=== PATIENT | female | born 1960 | race Caucasian/White ===

== ENCOUNTER 2016-10-31 13:30 | Emergency (ER) | payer BC ==
[2016-10-31] MEDS ORDERED: Zofran 4 MG/2 ML VIAL IV ONE (14:12)
[2016-10-31] MEDS ORDERED: ANTIVERT 25 MG PO ONE (14:15)
[2016-10-31] MEDS ORDERED: Sodium Chloride 0.9% 1000 ML 1,000 ML IV SCH (14:15)
[2016-10-31 14:21] LABS: BASOPHIL % 0.3 % (0.0-0.4); Eosinophil % 1.9 % (0.00-5.0); Granulocytes % 57.5 % (36.0-66.0); Lymphocytes % 33.5 % (24.0-44.0); Mean Cell Volume 87.9 fl (78-100); Mean Corpuscular Hemoglobin 29.7 pg (26-32); Mean Platelet Volume 10.5 fl (6-9.5); Monocytes % 6.8 % (0.0-12.0); Platelet Count 267 K/mm3 (150-450); Red Blood Count 4.71 M/mm3 (4.1-5.4); Red Cell Distribution Width 12.9 % (11.5-14.0); White Blood Count 6.8 K/mm3 (4.0-10.5)
--- NOTE | 2016-10-31 14:23 | ERPHSYRPT ---
- History of Present Illness Time Seen by Provider: 10/31/16 14:00 Source: patient Exam Limitations: clinical condition Patient Subjective Stated Complaint: SUDDEN ONSET OF DIZZINESS WHILE AT WORK TODAY. BECAME DIAPHORETIC AND NAUEATED. NOW FEELING VERY WEAK Triage Nursing Assessment: TO ROOM PER W/C, COLOR NORMAL, RESP EASY. SKIN W/D. STATES STILL FEELS WEAK AND NAUSEATED. Physician History: PATIENT WITH HISTORY OR HYPERTENSION, COMPLAINS OF ACUTE ONSET DIZZINESS, FELT ROOM SPINNNG, ASSOCIATED WITH HEADACHE, DENIES BLURRED VISION, CHEST PAIN, COUGH , DYSPNEA, EMESIS OR DIARRHEA. Timing/Duration: today Severity: moderate Character of Deficits: other (NAUSEA, DIZZINESS) Deficits: no difficulties Baseline/Normal Cognition: alert oriented x 3 Current Cognition: alert oriented x 3 Baseline Gait: walks w/o assistance Associated Symptoms: vomiting Allergies/Adverse Reactions: hydrocodone bitartrate [From Vicodin] Adverse Reaction (Intermediate, Verified 10/31/16 13:58) MIGRAINE LIKE HEADACHES codeine Adverse Reaction (Verified 10/31/16 13:58) Home Medications: Omeprazole 20 MG [Prilosec 20 mg] 20 mg PO DAILY 12/07/11 [History] Famotidine [Pepcid] 40 mg PO DAILY PRN PRN 02/27/14 [History] Loratadine 10 mg [Claritin 10 mg] 10 mg PO DAILY 02/27/14 [History] Diclofenac Sodium 50 mg [Voltaren 50 mg] 50 mg PO DAILY PRN 04/28/14 [ History] Losartan Potassium 50 mg [Cozaar 50 MG] 50 mg PO DAILY 10/31/16 [History] Hx Tetanus, Diphtheria Vaccination/Date Given: Yes Hx Influenza Vaccination/Date Given: No Hx Pneumococcal Vaccination/Date Given: No - Review of Systems Constitutional: No Fever, No Chills Eyes: No Symptoms Ears, Nose, & Throat: No Symptoms Respiratory: No Cough, No Dyspnea Cardiac: No Symptoms, No Chest Pain, No Edema, No Syncope Abdominal/Gastrointestinal: Nausea, No Abdominal Pain, No Vomiting, No Diarrhea Genitourinary Symptoms: No Dysuria Musculoskeletal: No Symptoms, No Back Pain, No Neck Pain Skin: No Symptoms, No Rash Neurological: Headache, No Dizziness, No Focal Weakness, No Sensory Changes Psychological: No Symptoms Endocrine: No Symptoms All Other Systems: Reviewed and Negative - Past Medical History Pertinent Past Medical History: Yes Neurological History: No Pertinent History ENT History: No Pertinent History Cardiac History: Hypertension Respiratory History: No Pertinent History Endocrine Medical History: No Pertinent History Musculoskeletal History: Arthritis GI Medical History: GERD History: No Pertinent History Psycho-Social History: Depression Female Reproductive Disorders: No Pertinent History Other Medical History: hx hepatis when 10 yrs - Past Surgical History Past Surgical History: Yes Neuro Surgical History: No Pertinent History Cardiac: No Pertinent History Respiratory: No Pertinent History Gastrointestinal: Cholecystectomy Genitourinary: No Pertinent History Musculoskeletal: Orthopedic Surgery Female Surgical History: Section, Hysterectomy Other Surgical History: T&A, guillermo knee - Social History Smoking Status: Never smoker Exposure to second hand smoke: Yes Drug Use: none Patient Lives Alone: No - Nursing Vital Signs Nursing Vital Signs: Initial Vital Signs Temperature 97.5 F Temperature Source Oral Pulse Rate 69 Respiratory Rate 22 Blood Pressure [] 147/72 Pain Intensity 2 - Physical Exam SpO2: 99 - Course EKG Interpreted by Me: RATE, Sinus Dex, NORMAL AXIS, Non-specific ST Changes - CT Exams Head CT Interpretation: Discussed w/radiologist (NORMAL CT HEAD ) Ordered Tests: Active Orders 24 hr Category Date Time Status EKG-ER Only STAT Care 10/31/16 14:12 Active IV Insertion STAT Care 10/31/16 14:12 Active HEAD WITHOUT CONTRAST [CT] Stat Exams 10/31/16 14:15 Completed CBC W DIFF Stat Lab 10/31/16 14:00 Completed CMP Stat Lab 10/31/16 14:00 Completed TROPONIN Q3H Lab 10/31/16 14:00 Completed TROPONIN Q3H Lab 10/31/16 17:15 Ordered TROPONIN Q3H Lab 10/31/16 20:15 Ordered TROPONIN Q3H Lab 10/31/16 23:15 Ordered TROPONIN Q3H Lab 11/01/16 02:15 Ordered UA W/ MICROSCOPIC Stat Lab 10/31/16 16:04 Completed Medication Summary Generic Name Dose Route Start Last Admin Trade Name Freq PRN Reason Stop Dose Admin Sodium Chloride 1,000 mls @ 100 mls/hr 10/31/16 14:15 10/31/16 15:00 Sodium Chloride 0.9% 1000 Ml IV 11/30/16 14:14 100 mls/hr .Q10H ARIANNA Administration Discontinued Medications Generic Name Dose Route Start Last Admin Trade Name Freq PRN Reason Stop Dose Admin Fentanyl Citrate 50 mcg 10/31/16 16:33 10/31/16 16:41 Sublimaze 100 Mcg/2 Ml IV 10/31/16 16:34 50 mcg STAT ONE Administration Fentanyl Citrate Confirm 10/31/16 16:37 Sublimaze 100 Mcg/2 Ml Administered 10/31/16 16:38 Dose 100 mcg .ROUTE .STK-MED ONE Ketorolac Tromethamine 30 mg 10/31/16 14:55 10/31/16 15:01 Toradol 30 Mg Injection IV 10/31/16 14:56 30 mg STAT ONE Administration Ketorolac Tromethamine Confirm 10/31/16 14:58 Toradol 30 Mg Injection Administered 10/31/16 14:59 Dose 30 mg .ROUTE .STK-MED ONE Meclizine HCl 25 mg 10/31/16 14:15 10/31/16 15:00 Antivert 25 Mg PO 10/31/16 14:16 25 mg STAT ONE Administration Meclizine HCl Confirm 10/31/16 14:47 Antivert 25 Mg Administered 10/31/16 14:48 Dose 25 mg .ROUTE .STK-MED ONE Ondansetron HCl 4 mg 10/31/16 14:12 10/31/16 15:00 Zofran 4 Mg/2 Ml Vial IV 10/31/16 14:13 4 mg STAT ONE Administration Ondansetron HCl Confirm 10/31/16 14:47 Zofran 4 Mg/2 Ml Vial Administered 10/31/16 14:48 Dose 4 mg .ROUTE .STK-MED ONE Lab/Rad Data: Laboratory Result Diagrams 10/31/16 14:00 10/31/16 14:00 Laboratory Results 10/31/16 10/31/16 10/31/16 Range/Units 16:04 14:00 14:00 WBC (4.0-10.5) K/mm3 RBC (4.1-5.4) M/mm3 Hgb (12.0-16.0) gm/dl Hct (35-47) % MCV (78-100) fl MCH (26-32) pg MCHC (32-36) g/dl RDW (11.5-14.0) % Plt Count (150-450) K/mm3 MPV (6-9.5) fl Gran % (36.0-66.0) % Lymphocytes % (24.0-44.0) % Monocytes % (0.0-12.0) % Eosinophils % (0.00-5.0) % Basophils % (0.0-0.4) % Basophils # (0-0.4) Sodium 141 (136-145) mEq/L Potassium 3.9 (3.5-5.1) mEq/L Chloride 103 (98-107) mEq/L Carbon Dioxide 26.8 (21-32) mEq/L Anion Gap 14.7 (5-15) MEQ/L BUN 10 (9-20) mg/dL Creatinine 0.76 (0.55-1.30) mg/dl Estimated GFR > 60 ML/MIN Glucose 96 (70-110) MG/DL Calcium 9.1 (8.5-10.1) mg/dL Total Bilirubin 0.9 (0.2-1.0) mg/dL AST 23 (15-37) U/L ALT 22 (12-78) U/L Alkaline Phosphatase 100 (46-116) U/L Troponin I < 0.017 (0.000-0.056) ng/ml Serum Total Protein 7.4 (6.4-8.2) gm/dL Albumin 4.2 (3.4-5.0) g/dL Ur Collection Type VOID Urine Color YELLOW (YELLOW) Urine Appearance CLEAR (CLEAR) Urine pH 7.0 (5-6) Ur Specific [place] 1.015 (1.005-1.025) Urine Protein NEGATIVE (Negative) Urine Glucose (UA) NEGATIVE (NEGATIVE) mg/dL Urine Ketones NEGATIVE (NEGATIVE) Urine Nitrite NEGATIVE (NEGATIVE) Urine Bilirubin NEGATIVE (NEGATIVE) Urine Urobilinogen 0.2 (0-1) mg/dL Urine WBC (Auto) SMALL (NEGATIVE) Urine RBC (Auto) TRACE-INTACT (0-5) [place]/ul Urine Microscopic RBC 0-2 (0-2) /HPF Urine Microscopic WBC 2-5 (0-5) /HPF Ur Epithelial Cells FEW (FEW) /HPF Urine Bacteria FEW (NEGATIVE) /HPF Specimen Received 10/31/16 1600 10/31/16 Range/Units 14:00 WBC 6.8 (4.0-10.5) K/mm3 RBC 4.71 (4.1-5.4) M/mm3 Hgb 14.0 (12.0-16.0) gm/dl Hct 41.4 (35-47) % MCV 87.9 (78-100) fl MCH 29.7 (26-32) pg MCHC 33.8 (32-36) g/dl RDW 12.9 (11.5-14.0) % Plt Count 267 (150-450) K/mm3 MPV 10.5 H (6-9.5) fl Gran % 57.5 (36.0-66.0) % Lymphocytes % 33.5 (24.0-44.0) % Monocytes % 6.8 (0.0-12.0) % Eosinophils % 1.9 (0.00-5.0) % Basophils % 0.3 (0.0-0.4) % Basophils # 0.02 (0-0.4) Sodium (136-145) mEq/L Potassium (3.5-5.1) mEq/L Chloride (98-107) mEq/L Carbon Dioxide (21-32) mEq/L Anion Gap (5-15) MEQ/L BUN (9-20) mg/dL Creatinine (0.55-1.30) mg/dl Estimated GFR ML/MIN Glucose (70-110) MG/DL Calcium (8.5-10.1) mg/dL Total Bilirubin (0.2-1.0) mg/dL AST (15-37) U/L ALT (12-78) U/L Alkaline Phosphatase (46-116) U/L Troponin I (0.000-0.056) ng/ml Serum Total Protein (6.4-8.2) gm/dL Albumin (3.4-5.0) g/dL Ur Collection Type Urine Color (YELLOW) Urine Appearance (CLEAR) Urine pH (5-6) Ur Specific [place] (1.005-1.025) Urine Protein (Negative) Urine Glucose (UA) (NEGATIVE) mg/dL Urine Ketones (NEGATIVE) Urine Nitrite (NEGATIVE) Urine Bilirubin (NEGATIVE) Urine Urobilinogen (0-1) mg/dL Urine WBC (Auto) (NEGATIVE) Urine RBC (Auto) (0-5) [place]/ul Urine Microscopic RBC (0-2) /HPF Urine Microscopic WBC (0-5) /HPF Ur Epithelial Cells (FEW) /HPF Urine Bacteria (NEGATIVE) /HPF Specimen Received - Progress Progress: improved Progress Note: 10/31/16 14:24 PATIENT ADMINISTERED ZOFRAN 4 MG, ANTIVERT 25MG ORALLY, IV FLUIDS NORMAL SALINE 100ML/HR 10/31/16 17:03 GIVEN FENTANYL 50MCG IV Counseled pt/family regarding: lab results, diagnosis, need for follow-up, rad results - Departure Time of Disposition: 17:15 Departure Disposition: Home Clinical Impression: Acute labyrinthitis Condition: Stable Critical Care Time: No Referrals: ARTHUR MILLS NP [Primary Care Provider] - Additional Instructions: ANTIVERT 25MG EVERY 8 HOURS FOR DIZZINESS. CONTINUE ZOFRAN 4MG EVERY 4 HOURS NEEDED FOR NAUSEA. ULTRAM 50MG EVERY 6 HOURS FOR PAIN NEEDED. CONSULT YOUR PRIMARY CARE PHYSICIAN FOR FOLLOWUP IN 1 WEEK. Prescriptions: Ondansetron [Zofran Odt] 4 mg PO Q4HPRN PRN #6 tab.rapdis PRN Reason: Nausea Meclizine HCl 25 mg [Antivert 25 mg] 25 mg PO TID #21 tablet
[2016-10-31 14:31] LABS: ALBUMIN 4.2 g/dL (3.4-5.0); ALKALINE PHOSPHATASE 100 U/L (46-116); ANION GAP 14.7 MEQ/L (5-15); BILIRUBIN,TOTAL 0.9 mg/dL (0.2-1.0); BLOOD UREA NITROGEN 10 mg/dL (9-20); CHLORIDE 103 mEq/L (98-107); Carbon Dioxide 26.8 mEq/L (21-32); Glucose 96 MG/DL (70-110); Potassium 3.9 mEq/L (3.5-5.1); SGOT/AST 23 U/L (15-37); SGPT/ALT 22 U/L (12-78); SODIUM 141 mEq/L (136-145); Total Protein 7.4 gm/dL (6.4-8.2)
[2016-10-31] MEDS ORDERED: Zofran 4 MG/2 ML VIAL ONE (14:47)
[2016-10-31] MEDS ORDERED: ANTIVERT 25 MG ONE (14:47)
[2016-10-31] MEDS ORDERED: Sodium Chloride 0.9% 1000 ML 1,000 ML ONE (14:47)
--- NOTE | 2016-10-31 14:52 | XRAY ---
Indication: Weakness, dizziness, and unsteady gait. No known injury. Multiple contiguous axial images obtained through the head without contrast. Comparison: None Normal appearing brain parenchyma, ventricles, and bony calvarium. Visualized paranasal sinuses and mastoid air cells are pneumatized and clear. Impression: Normal CT head without contrast exam. CT DI 69.38
[2016-10-31] MEDS ORDERED: TORAdol 30 mg Injection IV ONE (14:55)
[2016-10-31] MEDS ORDERED: TORAdol 30 mg Injection ONE (14:58)
[2016-10-31 16:06] LABS: Collection Type VOID
[2016-10-31 16:10] LABS: COMPLETE URINE MICROSCOPIC? YES
[2016-10-31 16:26] VITALS: BP 147/72
[2016-10-31] MEDS ORDERED: SUBLIMAZE 100 MCG/2 ML IV ONE (16:33)
[2016-10-31 16:37] LABS: Bacteria FEW /HPF (NEGATIVE); Epithelial Cells FEW /HPF (FEW)
[2016-10-31] MEDS ORDERED: SUBLIMAZE 100 MCG/2 ML ONE (16:37)
[2016-10-31 16:52] VITALS: PULSE 69
[2016-10-31 17:08] VITALS: O2SAT 99
== END 2016-10-31 17:18 | disposition home or self-care (01) ==
LOC: ED 13:30
DX: H83.09 Labyrinthitis, unspecified ear (principal); R42 Dizziness and giddiness; R61 Generalized hyperhidrosis; R11.0 Nausea
CPT/HCPCS: 36000; 36415; 70450; 80053; 81000; 84484; 85025; 93005; 96374; 96375; 99284; 99285; J1885; J2405; J3010; A9270-GY

== ENCOUNTER 2018-02-21 06:00 | Day surgery (SDC) | payer BC ==
[2018-02-21] MEDS ORDERED: DIPRIVAN 200 MG/20 ML IV ONE (06:01)
[2018-02-21] MEDS ORDERED: Ketamine HCl 50 MG/ML IJ ONE (06:01)
[2018-02-21] MEDS ORDERED: Lactated Ringers 1,000 ML IV SCH (06:30)
[2018-02-21 08:19] VITALS: BP 174/99; PULSE 60; O2SAT 98
--- NOTE | 2018-02-21 10:51 | OP ---
SURGERY DATE/TIME: 02/21/2018 0700 PREOPERATIVE DIAGNOSIS: Screening colonoscopy. POSTOPERATIVE DIAGNOSIS: Two small sessile sigmoid colon polyps. PROCEDURE: Colonoscopy. SURGEON: John Kelley M.D. ANESTHESIA: MAC by Parker Longoria CRNA. ESTIMATED BLOOD LOSS: Minimal. SPECIMENS: Two hot forceps polypectomy from the sigmoid colon. DESCRIPTION OF PROCEDURE: After informed written consent was obtained, the patient was taken to the endoscopy suite. She underwent monitored anesthesia and digital rectal exam showed normal sphincter tone and no internal lesions. The scope was inserted into the rectum and sequentially the entire colonic mucosa was traversed. The level of cecum was reached and verified with direct visualization of ileocecal valve. Upon withdrawal careful mucosal inspection revealed no gross abnormalities other than scattered diverticula. There were two small flat sessile polyps in the sigmoid colon which were removed with hot forceps in their entirety. There was minimal blood loss. No other complications were encountered. Prior to withdrawal retroflexion showed no internal lesions. The scope was removed and the patient was transferred to the recovery room in good condition.
== END 2018-02-21 08:25 | disposition home or self-care (01) ==
LOC: SDC 06:00
PROVIDERS: ATTEND Family Medicine
DX: K63.5 Polyp of colon (principal); I10 Essential (primary) hypertension; K21.9 Gastro-esophageal reflux disease without esophagitis
CPT/HCPCS: J2704

== ENCOUNTER 2018-11-21 13:28 | Emergency (ER) | payer BC ==
[2018-11-21 14:34] VITALS: O2SAT 99
[2018-11-21] MEDS ORDERED: TORAdol 30 mg Injection IM ONE (14:36)
--- NOTE | 2018-11-21 14:41 | XRAY ---
Indication: Pain following fall. Comparison: None 3 views of the right ankle demonstrates tiny spurring of the posterior calcaneus and medial malleolus tip. No other bony, articular, or soft tissue abnormalities.
--- NOTE | 2018-11-21 14:42 | ERPHSYRPT ---
- History of Present Illness Time Seen by Provider: 11/21/18 14:37 Source: patient Exam Limitations: no limitations Patient Subjective Stated Complaint: pt reports approx 1115 while on her lunch from work she was going down approx 4 steps when she thinks the heel of her boot caught causing her to fall, pt reports she broke her fall with her arms and when she stood up found to have pain to the right ankle and dorsal foot. pt denies LOC, pt denies any other injury. Triage Nursing Assessment: pt is aox3, pupils perrl, afebrile, resps easy and non labored, radial pulses strong and equal, cap refill < 3 seconds, pain localized to the right distal ankle that radiates laterally to the dorsal foot. pain increased with weight bearing. no obvious injury or deformity noted, no swelling noted. pedal pulses equal bilat. Physician History: 58-year-old white female with history of high blood pressure, GERD, osteoarthritis, depression, sciatica. Patient arrives with complaint of pain in her right lateral ankle and foot just inferior to the right lateral malleolus symptoms since 11:15 today she states she fell down several steps at work. She has severe pain in the right lateral ankle. She denies any other complaints. Past medical history includes high blood pressure, gastroesophageal reflux disease, osteoarthritis, depression, sciatica. Past surgical history includes tonsillectomy, adenoidectomy, cholecystectomy, C- section, hysterectomy, orthopedic surgery, bilateral knee surgery. Method of Injury: fell (fell down steps at work) Occurred: this morning (11:15 this morning) Quality: constant, aching Severity of Pain-Max: moderate Severity of Pain-Current: moderate Lower Extremities Pain: foot: right (right foot just inferior to the lateral malleolus), ankle: right (right lateral ankle) Associated Symptoms: unable to bear weight, other (pain with moving) Allergies/Adverse Reactions: hydrocodone bitartrate [From Vicodin] Adverse Reaction (Intermediate, Verified 11/21/18 13:57) MIGRAINE LIKE HEADACHES codeine Adverse Reaction (Verified 11/21/18 13:57) Home Medications: Omeprazole 20 MG [Prilosec 20 mg] 20 mg PO DAILY 12/07/11 [History] Loratadine 10 mg [Claritin 10 mg] 10 mg PO DAILY 02/27/14 [History] Losartan Potassium 50 mg [Cozaar 50 MG] 50 mg PO DAILY 10/31/16 [History] Paroxetine HCl 20 mg [Paxil 20 MG] 20 mg PO DAILY 02/19/18 [History] Hx Tetanus, Diphtheria Vaccination/Date Given: Yes Hx Influenza Vaccination/Date Given: No Hx Pneumococcal Vaccination/Date Given: No Immunizations Up to Date: Yes - Review of Systems Constitutional: No Fever, No Chills Eyes: No Symptoms Ears, Nose, & Throat: No Symptoms Respiratory: No Cough, No Dyspnea Cardiac: No Chest Pain, No Edema, No Syncope Abdominal/Gastrointestinal: No Abdominal Pain, No Nausea, No Vomiting, No Diarrhea Genitourinary Symptoms: No Dysuria Musculoskeletal: Other (Pain in right foot just inferior to lateral malleolus. pain right lateral ankle) Skin: No Rash Neurological: No Dizziness, No Focal Weakness, No Sensory Changes Psychological: No Symptoms Endocrine: No Symptoms All Other Systems: Reviewed and Negative - Past Medical History Pertinent Past Medical History: Yes Neurological History: No Pertinent History ENT History: No Pertinent History Cardiac History: Hypertension Respiratory History: No Pertinent History Endocrine Medical History: No Pertinent History Musculoskeletal History: Osteoarthritis GI Medical History: GERD History: No Pertinent History Psycho-Social History: Depression Female Reproductive Disorders: No Pertinent History Other Medical History: Sciatica - Past Surgical History Past Surgical History: Yes Neuro Surgical History: No Pertinent History Cardiac: No Pertinent History Respiratory: No Pertinent History Gastrointestinal: Cholecystectomy Genitourinary: No Pertinent History Musculoskeletal: Orthopedic Surgery Female Surgical History: Section, Hysterectomy Other Surgical History: T&A, guillermo knee scopes - Social History Smoking Status: Never smoker Exposure to second hand smoke: Yes Drug Use: none Patient Lives Alone: No - Female History Hx Now: No - Nursing Vital Signs Nursing Vital Signs: Initial Vital Signs Temperature 98.1 F 11/21/18 13:46 Pulse Rate 66 11/21/18 13:46 Respiratory Rate 20 11/21/18 13:46 Blood Pressure 145/77 11/21/18 13:46 O2 Sat by Pulse Oximetry 97 11/21/18 13:46 Pain Scale Pain Intensity 8 - Physical Exam General Appearance: moderate distress, alert Eyes, Ears, Nose, Throat Exam: moist mucous membranes Neck Exam: non-tender, supple Cardiovascular/Respiratory Exam: chest non-tender, normal breath sounds, regular rate/rhythm, no respiratory distress Gastrointestinal/Abdominal Exam: non-tender, guarding Back Exam: normal inspection, No vertebral tenderness Hips Exam: bilateral: non-tender, normal inspection, normal range of motion, no evidence of injury Legs Exam: bilateral leg: non-tender, normal inspection, normal range of motion , no evidence of injury Knees Exam: bilateral knee: non-tender, normal inspection, normal range of motion, no evidence of injury Ankle Exam: right ankle: bone tenderness (pain right lateral ankle), limited range of motion (decreased range of motion right ankle secondary to pain), left ankle: non-tender, normal inspection, normal range of motion, no evidence of injury Foot Exam: right foot: bone tenderness (tender inferior to the lateral malleolus ), limited range of motion (decreased range of motion secondary to ankle pain), left foot: non-tender, normal inspection, normal range of motion, no evidence of injury Neuro/Tendon Exam: normal sensation, normal motor functions Mental Status Exam: alert, oriented x 3, cooperative Skin Exam: normal color, warm, dry SpO2 Interpretation: normal (99%) SpO2: 99 - Course Nursing assessment & vital signs reviewed: Yes - Radiology Exams Right Ankle X-ray Interpretation: Discussed w/ radiologist (x-ray right ankle: Tiny spurring of the posterior calcaneus and medial malleolus tip. No other bony, articular, or soft tissue abnormalities) Ordered Tests: Active Orders 24 hr Category Date Time Status Crutches STAT Care 11/21/18 15:10 Active Splint STAT Care 11/21/18 15:10 Active ANKLE (3 VIEWS) Stat Exams 11/21/18 14:16 Completed Medication Summary Discontinued Medications Generic Name Dose Route Start Last Admin Trade Name Freq PRN Reason Stop Dose Admin Ketorolac Tromethamine 60 mg 11/21/18 14:36 11/21/18 14:56 Toradol 30 Mg Injection IM 11/21/18 14:37 60 mg STAT ONE Administration Ketorolac Tromethamine Confirm 11/21/18 14:54 Toradol 30 Mg Injection Administered 11/21/18 14:55 Dose 60 mg .ROUTE .STK-MED ONE - Progress Progress: improved Progress Note: 11/21/18 15:11 X-ray the patient's right ankle show a tiny spurring of the posterior calcaneus and medial malleolus tip. No other bony , articular, or soft tissue abnormalities. Patient is given Toradol IM for pain. Will provide for crutches, air cast right ankle. Will write for tramadol for pain. Patient to followup with her company physician. Or family Dr. - Departure Departure Disposition: Home Clinical Impression: Right ankle strain Qualifiers: Encounter type: initial encounter Qualified Code(s): S96.911A - Strain of unspecified muscle and tendon at ankle and foot level, right foot, initial encounter Right ankle pain Qualifiers: Chronicity: acute Qualified Code(s): M25.571 - Pain in right ankle and joints of right foot Condition: Fair Critical Care Time: No Referrals: ARTHUR MILLS NP [Primary Care Provider] - Instructions: Ankle Sprain (DC) Additional Instructions: Return home. Ice and elevate right ankle 24-48 hours. Crutches weightbearing as tolerated. [place] as prescribed. Followup with your company physician . Return for acute distress or for severe symptoms. Prescriptions: Tramadol HCl 50 mg [Ultram 50 mg] 50 mg PO Q6H PRN PRN #12 tablet PRN Reason: right ankle pain
[2018-11-21] MEDS ORDERED: TORAdol 30 mg Injection ONE (14:54)
[2018-11-21 15:32] VITALS: BP 173/92; PULSE 72
== END 2018-11-21 15:59 | disposition home or self-care (01) ==
LOC: ED 13:28
DX: S96.911A Strain of unspecified muscle and tendon at ankle and foot level, right foot, initial encounter (principal); M25.571 Pain in right ankle and joints of right foot; W10.9XXA Fall (on) (from) unspecified stairs and steps, initial encounter; Y93.89 Activity, other specified; Y92.89 Other specified places as the place of occurrence of the external cause; Y99.0 Civilian activity done for income or pay; K21.9 Gastro-esophageal reflux disease without esophagitis; F32.9 Major depressive disorder, single episode, unspecified; Z79.899 Other long term (current) drug therapy; M19.90 Unspecified osteoarthritis, unspecified site
CPT/HCPCS: 73610; 96372; 99284; J1885

== ENCOUNTER 2020-05-19 15:28 | Emergency (ER) | payer OTHER ==
--- NOTE | 2020-05-19 15:33 | ERPHSYRPT ---
- History of Present Illness Time Seen by Provider: 05/19/20 15:33 Source: patient Exam Limitations: no limitations Physician History: This is a 60-year-old white female who found out this past Sunday that she was positive for the COVID-19 virus. She has had flulike symptoms but this morning she was up making coffee and next thing she knew she was on the floor. She s tated that she did hit her head. In addition she complains of a nonspecific rash that is somewhat generalized. Patient states that she feels weak and just does not feel well overall. She arrives to the emergency department with a room air oxygen saturation in the 96 to 97% range. She arrives with a temperature of 102.5 F. She denies chest pain shortness of breath. She denies nausea vomiting diarrhea. She was scheduled for an infusion test as an outpatient to help in treatment of her COVID-19 however her syncopal episode occurred and she is felt so poorly that she decided to come to the emergency department. Timing/Duration: today Severity: moderate Associated Symptoms: malaise, rash, syncope, weakness, No nausea, No vomiting, No abdominal pain, No cough Allergies/Adverse Reactions: hydrocodone bitartrate [From Vicodin] Adverse Reaction (Intermediate, Verified 11/21/18 13:57) MIGRAINE LIKE HEADACHES codeine Adverse Reaction (Verified 11/21/18 13:57) Home Medications: Omeprazole 20 MG [Prilosec 20 mg] 20 mg PO DAILY 12/07/11 [History] Loratadine 10 mg [Claritin 10 mg] 10 mg PO DAILY 02/27/14 [History] Losartan Potassium 50 mg [Cozaar 50 MG] 50 mg PO DAILY 10/31/16 [History] Paroxetine HCl 20 mg [Paxil 20 MG] 20 mg PO DAILY 02/19/18 [History] Hx Tetanus, Diphtheria Vaccination/Date Given: Yes Hx Influenza Vaccination/Date Given: No Hx Pneumococcal Vaccination/Date Given: No Travel Risk - International Travel Have you traveled outside of the country in past 3 weeks: No - Coronavirus Screening Are you exhibiting any of the following symptoms?: No Close contact with a COVID-19 positive Pt in past 14-21 Days: No - Review of Systems Constitutional: Fever, Chills, Malaise, Weakness Eyes: No Symptoms Ears, Nose, & Throat: No Symptoms Respiratory: No Symptoms Cardiac: No Symptoms Abdominal/Gastrointestinal: No Symptoms Genitourinary Symptoms: No Symptoms Musculoskeletal: Arthralgias, Myalgias Skin: Rash Neurological: No Symptoms Psychological: No Symptoms Endocrine: No Symptoms Hematologic/Lymphatic: No Symptoms Immunological/Allergic: No Symptoms All Other Systems: Reviewed and Negative - Past Medical History Pertinent Past Medical History: Yes Neurological History: No Pertinent History ENT History: No Pertinent History Cardiac History: Hypertension Respiratory History: No Pertinent History Endocrine Medical History: No Pertinent History Musculoskeletal History: Osteoarthritis GI Medical History: GERD History: No Pertinent History Psycho-Social History: Depression Female Reproductive Disorders: No Pertinent History Other Medical History: past scope on R knee for meniscus tears - Past Surgical History Past Surgical History: Yes Neuro Surgical History: No Pertinent History Cardiac: No Pertinent History Respiratory: No Pertinent History Gastrointestinal: Cholecystectomy Genitourinary: No Pertinent History Musculoskeletal: Orthopedic Surgery Female Surgical History: Section, Hysterectomy Other Surgical History: T&A, guillermo knee scopes - Social History Smoking Status: Never smoker Exposure to second hand smoke: Yes Drug Use: none Patient Lives Alone: No - Nursing Vital Signs Nursing Vital Signs: Initial Vital Signs Temperature 102.5 F 05/19/20 16:25 Pulse Rate 82 05/19/20 16:25 Respiratory Rate 22 05/19/20 16:25 Blood Pressure 159/81 05/19/20 16:25 O2 Sat by Pulse Oximetry 96 05/19/20 16:25 Pain Scale Pain Intensity 0 - Physical Exam General Appearance: moderate distress, alert, anxiety Eye Exam: PERRL/EOMI, eyes nml inspection Ears, Nose, Throat Exam: normal ENT inspection, moist mucous membranes Neck Exam: normal inspection, non-tender, supple, full range of motion Respiratory Exam: normal breath sounds, lungs clear, airway intact, No chest tenderness, No respiratory distress Cardiovascular Exam: regular rate/rhythm, normal heart sounds, normal peripheral pulses Gastrointestinal/Abdomen Exam: soft, normal bowel sounds, No tenderness Pelvic Exam: not done Rectal Exam: not done Back Exam: normal inspection, normal range of motion, No CVA tenderness, No vertebral tenderness Extremity Exam: normal inspection, normal range of motion, pelvis stable Neurologic Exam: alert, oriented x 3, cooperative, search and rescue officer II-XII nml as tested, normal mood/affect, nml cerebellar function, nml station & gait, sensation nml Skin Exam: rash Lymphatic Exam: No adenopathy SpO2 Interpretation: normal O2 Delivery: Room Air - Course Nursing assessment & vital signs reviewed: Yes EKG Interpreted by Me: RATE (89), Sinus Rhythm, NORMAL AXIS, NORMAL INTERVALS, NORMAL QRS, Non-specific ST Changes, Other (Comparison EKG dated 12/04/2019 there are no significant changes. There is no acute ischemic changes.) Ordered Tests: Active Orders 24 hr Category Date Time Status EKG-ER Only STAT Care 05/19/20 16:20 Active IV Insertion STAT Care 05/19/20 16:16 Active Isolation, Initiate & Maintain STAT Care 05/19/20 16:16 Active Pulse Oximetry (ED) ROUTINE Care 05/19/20 16:17 Active CHEST 1 VIEW (PORTABLE) Stat Exams 05/19/20 16:18 Completed CHEST WITH CONTRAST [CT] Stat Exams 05/19/20 17:34 Taken HEAD WITHOUT CONTRAST [CT] Stat Exams 05/19/20 16:23 Completed BLOOD CULTURE Stat Lab 05/19/20 17:00 Received CBC W DIFF Stat Lab 05/19/20 16:59 Completed CMP Stat Lab 05/19/20 16:59 Completed CULTURE,URINE Stat Lab 05/19/20 16:25 Received D-DIMER QUANTITATIVE Stat Lab 05/19/20 16:16 Completed Ferritin Stat Lab 05/19/20 16:59 Completed LDH-LACTATE DEHYDROGENASE Stat Lab 05/19/20 16:59 Completed Lactic Acid Stat Lab 05/19/20 16:16 Completed [place] Screen Stat Lab 05/19/20 16:59 Completed TROPONIN Q3H Lab 05/19/20 16:59 Completed TROPONIN Q3H Lab 05/19/20 19:30 Ordered TROPONIN Q3H Lab 05/19/20 22:30 Ordered TROPONIN Q3H Lab 05/20/20 01:30 Ordered TROPONIN Q3H Lab 05/20/20 04:30 Ordered UA W/RFX UR CULTURE Stat Lab 05/19/20 16:25 Completed Medication Summary Discontinued Medications Generic Name Dose Route Start Last Admin Trade Name Freq PRN Reason Stop Dose Admin Acetaminophen 650 mg 05/19/20 16:05 05/19/20 16:09 Tylenol 325 Mg PO 05/19/20 16:06 650 mg STAT STA Administration Acetaminophen Confirm 05/19/20 16:06 Tylenol 325 Mg Administered 05/19/20 16:07 Dose 650 mg .ROUTE .STK-MED ONE Dexamethasone Sodium Phosphate 8 mg 05/19/20 16:24 05/19/20 17:07 Decadron 4 Mg Inj IV 05/19/20 16:25 8 mg STAT ONE Administration Dexamethasone Sodium Phosphate Confirm 05/19/20 17:04 Decadron 4 Mg Inj Administered 05/19/20 17:05 Dose 8 mg .ROUTE .STK-MED ONE Fluconazole 150 mg 05/19/20 17:33 05/19/20 17:50 Diflucan 100 Mg PO 05/19/20 17:34 150 mg ONCE ONE Administration Sodium Chloride 1,000 mls @ 999 mls/hr 05/19/20 16:06 05/19/20 16:09 Sodium Chloride 0.9% 1000 Ml IV 05/19/20 17:06 999 mls/hr .Q1H1M STA Administration Sodium Chloride Confirm 05/19/20 16:06 Sodium Chloride 0.9% 1000 Ml Administered 05/19/20 16:07 Dose 1,000 mls @ ud .ROUTE .STK-MED ONE Ceftriaxone Sodium/Dextrose 1 g in 50 mls @ 100 mls/hr 05/19/20 17:31 05/19/20 17:44 Rocephin 1 Gm-D5w 50 Ml Bag IV 05/19/20 18:00 100 mls/hr STAT STA 100 mls/hr Administration Sodium Chloride 500 mls @ 500 mls/hr 05/19/20 17:35 05/19/20 17:52 Sodium Chloride 0.9% 500 Ml IV 05/19/20 18:34 Not Given .Q1H ONE Ceftriaxone Sodium/Dextrose Confirm 05/19/20 17:41 Rocephin 1 Gm-D5w 50 Ml Bag Administered 05/19/20 17:42 Dose 1 g in 50 mls @ ud IV .STK-MED ONE Levofloxacin 500 mg 05/19/20 17:31 05/19/20 17:45 Levofloxacin 500 Mg Tablet PO 05/19/20 17:32 500 mg STAT ONE Administration Levofloxacin Confirm 05/19/20 17:42 Levofloxacin 500 Mg Tablet Administered 05/19/20 17:43 Dose 500 mg .ROUTE .STK-MED ONE Ondansetron HCl 4 mg 05/19/20 16:16 05/19/20 17:06 Zofran 4 Mg/2 Ml Vial IV 05/19/20 16:17 4 mg STAT ONE Administration Ondansetron HCl Confirm 05/19/20 17:04 Zofran 4 Mg/2 Ml Vial Administered 05/19/20 17:05 Dose 4 mg .ROUTE .K-MED ONE Lab/Rad Data: Laboratory Result Diagrams 05/19/20 16:59 05/19/20 16:59 Laboratory Results 05/19/20 05/19/20 05/19/20 Range/Units 17:00 16:59 16:59 WBC (4.0-10.5) K/mm3 RBC (4.1-5.4) M/mm3 Hgb (12.0-16.0) gm/dl Hct (35-47) % MCV (78-100) fl MCH (26-32) pg MCHC (32-36) g/dl RDW (11.5-14.0) % Plt Count (150-450) K/mm3 MPV (7.5-11.0) fl Gran % (36.0-66.0) % Eos # (Auto) (0-0.5) Absolute Lymphs (auto) (1.0-4.6) Absolute Monos (auto) (0.0-1.3) Lymphocytes % (24.0-44.0) % Monocytes % (0.0-12.0) % Eosinophils % (0.00-5.0) % Basophils % (0.0-0.4) % Absolute Granulocytes (1.4-6.9) Basophils # (0-0.4) D-Dimer (215-500) ng/mL Sodium (137-145) mmol/L Potassium (3.5-5.1) mmol/L Chloride (98-107) mmol/L Carbon Dioxide (22-30) mmol/L Anion Gap (5-15) MEQ/L BUN (7-17) mg/dL Creatinine (0.52-1.04) mg/dL Estimated GFR ML/MIN Glucose (74-106) mg/dL Lactic Acid (0.4-2.0) Calcium (8.4-10.2) mg/dL Ferritin 212 (11.1-264) ng/mL Total Bilirubin (0.2-1.3) mg/dL AST (14-36) U/L ALT (0-35) U/L Alkaline Phosphatase (38-126) U/L Lactate Dehydrogenase (120-246) U/L Troponin I (0.000-0.034) ng/mL Serum Total Protein (6.3-8.2) g/dL Albumin (3.5-5.0) g/dL Urine Color (YELLOW) Urine Appearance (CLEAR) Urine pH (5-6) Ur Specific [place] (1.005-1.025) Urine Protein (Negative) Urine Ketones (NEGATIVE) Urine Blood (0-5) Valdez/ul Urine Nitrite (NEGATIVE) Urine Bilirubin (NEGATIVE) Urine Urobilinogen (0-1) mg/dL Ur Leukocyte Esterase (NEGATIVE) Urine WBC (Auto) (0-5) /HPF Urine RBC (Auto) (0-2) /HPF U Epithel Cells (Auto) (FEW) /HPF Urine Bacteria (Auto) (NEGATIVE) /HPF Urine Yeast (Budding) (NEGATIVE) /HPF Urine Culture Reflexed (NO) Urine Glucose (NEGATIVE) mg/dL Monoscreen NEGATIVE (Negative) Influenza Type A Ag NEGATIVE (NEGATIVE) Influenza Type B Ag NEGATIVE (NEGATIVE) Group A Strep Antibody (NEGATIVE) 05/19/20 05/19/20 05/19/20 Range/Units 16:59 16:59 16:59 WBC 5.7 (4.0-10.5) K/mm3 RBC 4.40 (4.1-5.4) M/mm3 Hgb 12.9 (12.0-16.0) gm/dl Hct 38.6 (35-47) % MCV 87.7 (78-100) fl MCH 29.3 (26-32) pg MCHC 33.4 (32-36) g/dl RDW 13.6 (11.5-14.0) % Plt Count 203 (150-450) K/mm3 MPV 10.0 (7.5-11.0) fl Gran % 73.6 H (36.0-66.0) % Eos # (Auto) 0.01 (0-0.5) Absolute Lymphs (auto) 1.13 (1.0-4.6) Absolute Monos (auto) 0.37 (0.0-1.3) Lymphocytes % 19.7 L (24.0-44.0) % Monocytes % 6.5 (0.0-12.0) % Eosinophils % 0.2 (0.00-5.0) % Basophils % 0.0 (0.0-0.4) % Absolute Granulocytes 4.22 (1.4-6.9) Basophils # 0 (0-0.4) D-Dimer (215-500) ng/mL Sodium 138 (137-145) mmol/L Potassium 3.5 (3.5-5.1) mmol/L Chloride 102 (98-107) mmol/L Carbon Dioxide 28 (22-30) mmol/L Anion Gap 10.2 (5-15) MEQ/L BUN 9 (7-17) mg/dL Creatinine 0.60 (0.52-1.04) mg/dL Estimated GFR > 60.0 ML/MIN Glucose 122 H (74-106) mg/dL Lactic Acid (0.4-2.0) Calcium 9.0 (8.4-10.2) mg/dL Ferritin (11.1-264) ng/mL Total Bilirubin 0.90 (0.2-1.3) mg/dL AST 27 (14-36) U/L ALT 20 (0-35) U/L Alkaline Phosphatase 108 (38-126) U/L Lactate Dehydrogenase 192 (120-246) U/L Troponin I < 0.012 (0.000-0.034) ng/mL Serum Total Protein 7.1 (6.3-8.2) g/dL Albumin 3.9 (3.5-5.0) g/dL Urine Color (YELLOW) Urine Appearance (CLEAR) Urine pH (5-6) Ur Specific [place] (1.005-1.025) Urine Protein (Negative) Urine Ketones (NEGATIVE) Urine Blood (0-5) Valdez/ul Urine Nitrite (NEGATIVE) Urine Bilirubin (NEGATIVE) Urine Urobilinogen (0-1) mg/dL Ur Leukocyte Esterase (NEGATIVE) Urine WBC (Auto) (0-5) /HPF Urine RBC (Auto) (0-2) /HPF U Epithel Cells (Auto) (FEW) /HPF Urine Bacteria (Auto) (NEGATIVE) /HPF Urine Yeast (Budding) (NEGATIVE) /HPF Urine Culture Reflexed (NO) Urine Glucose (NEGATIVE) mg/dL Monoscreen (Negative) Influenza Type A Ag (NEGATIVE) Influenza Type B Ag (NEGATIVE) Group A Strep Antibody (NEGATIVE) 05/19/20 05/19/20 05/19/20 Range/Units 16:30 16:25 16:16 WBC (4.0-10.5) K/mm3 RBC (4.1-5.4) M/mm3 Hgb (12.0-16.0) gm/dl Hct (35-47) % MCV (78-100) fl MCH (26-32) pg MCHC (32-36) g/dl RDW (11.5-14.0) % Plt Count (150-450) K/mm3 MPV (7.5-11.0) fl Gran % (36.0-66.0) % Eos # (Auto) (0-0.5) Absolute Lymphs (auto) (1.0-4.6) Absolute Monos (auto) (0.0-1.3) Lymphocytes % (24.0-44.0) % Monocytes % (0.0-12.0) % Eosinophils % (0.00-5.0) % Basophils % (0.0-0.4) % Absolute Granulocytes (1.4-6.9) Basophils # (0-0.4) D-Dimer 1249 H* (215-500) ng/mL Sodium (137-145) mmol/L Potassium (3.5-5.1) mmol/L Chloride (98-107) mmol/L Carbon Dioxide (22-30) mmol/L Anion Gap (5-15) MEQ/L BUN (7-17) mg/dL Creatinine (0.52-1.04) mg/dL Estimated GFR ML/MIN Glucose (74-106) mg/dL Lactic Acid (0.4-2.0) Calcium (8.4-10.2) mg/dL Ferritin (11.1-264) ng/mL Total Bilirubin (0.2-1.3) mg/dL AST (14-36) U/L ALT (0-35) U/L Alkaline Phosphatase (38-126) U/L Lactate Dehydrogenase (120-246) U/L Troponin I (0.000-0.034) ng/mL Serum Total Protein (6.3-8.2) g/dL Albumin (3.5-5.0) g/dL Urine Color YELLOW (YELLOW) Urine Appearance TURBID (CLEAR) Urine pH 5.0 (5-6) Ur Specific [place] 1.027 (1.005-1.025) Urine Protein 30 (Negative) Urine Ketones NEGATIVE (NEGATIVE) Urine Blood SMALL (0-5) [place]/ul Urine Nitrite NEGATIVE (NEGATIVE) Urine Bilirubin NEGATIVE (NEGATIVE) Urine Urobilinogen 2 (0-1) mg/dL Ur Leukocyte Esterase LARGE (NEGATIVE) Urine WBC (Auto) >100 (0-5) /HPF Urine RBC (Auto) NONE (0-2) /HPF U Epithel Cells (Auto) NONE (FEW) /HPF Urine Bacteria (Auto) MODERATE (NEGATIVE) /HPF Urine Yeast (Budding) Few (NEGATIVE) /HPF Urine Culture Reflexed YES (NO) Urine Glucose NEGATIVE (NEGATIVE) mg/dL Monoscreen (Negative) Influenza Type A Ag (NEGATIVE) Influenza Type B Ag (NEGATIVE) Group A Strep Antibody NOT DETECTED (NEGATIVE) 05/19/20 Range/Units 16:16 WBC (4.0-10.5) K/mm3 RBC (4.1-5.4) M/mm3 Hgb (12.0-16.0) gm/dl Hct (35-47) % MCV (78-100) fl MCH (26-32) pg MCHC (32-36) g/dl RDW (11.5-14.0) % Plt Count (150-450) K/mm3 MPV (7.5-11.0) fl Gran % (36.0-66.0) % Eos # (Auto) (0-0.5) Absolute Lymphs (auto) (1.0-4.6) Absolute Monos (auto) (0.0-1.3) Lymphocytes % (24.0-44.0) % Monocytes % (0.0-12.0) % Eosinophils % (0.00-5.0) % Basophils % (0.0-0.4) % Absolute Granulocytes (1.4-6.9) Basophils # (0-0.4) D-Dimer (215-500) ng/mL Sodium (137-145) mmol/L Potassium (3.5-5.1) mmol/L Chloride (98-107) mmol/L Carbon Dioxide (22-30) mmol/L Anion Gap (5-15) MEQ/L BUN (7-17) mg/dL Creatinine (0.52-1.04) mg/dL Estimated GFR ML/MIN Glucose (74-106) mg/dL Lactic Acid 1.3 (0.4-2.0) Calcium (8.4-10.2) mg/dL Ferritin (11.1-264) ng/mL Total Bilirubin (0.2-1.3) mg/dL AST (14-36) U/L ALT (0-35) U/L Alkaline Phosphatase (38-126) U/L Lactate Dehydrogenase (120-246) U/L Troponin I (0.000-0.034) ng/mL Serum Total Protein (6.3-8.2) g/dL Albumin (3.5-5.0) g/dL Urine Color (YELLOW) Urine Appearance (CLEAR) Urine pH (5-6) Ur Specific [place] (1.005-1.025) Urine Protein (Negative) Urine Ketones (NEGATIVE) Urine Blood (0-5) Valdez/ul Urine Nitrite (NEGATIVE) Urine Bilirubin (NEGATIVE) Urine Urobilinogen (0-1) mg/dL Ur Leukocyte Esterase (NEGATIVE) Urine WBC (Auto) (0-5) /HPF Urine RBC (Auto) (0-2) /HPF U Epithel Cells (Auto) (FEW) /HPF Urine Bacteria (Auto) (NEGATIVE) /HPF Urine Yeast (Budding) (NEGATIVE) /HPF Urine Culture Reflexed (NO) Urine Glucose (NEGATIVE) mg/dL Monoscreen (Negative) Influenza Type A Ag (NEGATIVE) Influenza Type B Ag (NEGATIVE) Group A Strep Antibody (NEGATIVE) - Progress Progress: improved, re-examined Progress Note: 05/19/20 17:29 CAT scan of the head without contrast reveals no acute intracranial process. Chest x-ray reveals no acute cardiopulmonary process. 05/19/20 18:14 Medical decision making: This patient states that she is feeling much better after IV hydration IV antibiotics and fever control. Patient has a significant urinary tract infection. Her lungs are clear. Patient's temperature is now improved. She denies chest pain and she denies shortness of breath. Patient has an elevated D-dimer and we will perform a CAT scan of her chest with c ontraslila. If this test does not show pulmonary emboli, the patient states that she prefers to be discharged to home. I think this is reasonable. We already know she is COVID-19 positive. There are no other significant, clinical indications to keep her in the hospital if her chest x-ray is clear. 05/19/20 19:02 CAT scan of the chest with contrast shows a few subtle bilateral patchy groundglass airspace disease without consolidation or effusion. There is new moderate bilateral dependent atelectasis. There is no evidence of pulmonary emboli present. Counseled pt/family regarding: lab results, diagnosis, need for follow-up, rad results - Departure Departure Disposition: Home Clinical Impression: Fever, UTI (urinary tract infection) Condition: Stable Critical Care Time: No Referrals: KERRY GARZA [Primary Care Provider] - Additional Instructions: Drink plenty of fluids. Use Tylenol and ibuprofen for fever control if not allergic. Take medication as prescribed. Follow-up with your primary care physician for further management. Prescriptions: Levofloxacin [Levaquin 500 MG Tablet] 500 mg PO DAILY #7 tablet
[2020-05-19] MEDS ORDERED: TYLENOL 325 MG PO STA (16:05)
[2020-05-19] MEDS ORDERED: TYLENOL 325 MG ONE (16:06)
[2020-05-19] MEDS ORDERED: Sodium Chloride 0.9% 1000 ML 1,000 ML ONE (16:06)
[2020-05-19] MEDS ORDERED: Sodium Chloride 0.9% 1000 ML 1,000 ML IV STA (16:06)
[2020-05-19] MEDS ORDERED: Zofran 4 MG/2 ML VIAL IV ONE (16:16)
[2020-05-19] MEDS ORDERED: Decadron 4 MG INJ IV ONE (16:24)
--- NOTE | 2020-05-19 16:59 | XRAY ---
Indication: Positive COVID 19. Comparison: August 31, 2010. Portable chest again demonstrates normal heart and lungs. Bony thorax intact again with mild degenerative changes. No new/acute findings.
[2020-05-19 17:01] LABS: Absolute Neutrophil Ct (ANC) 4.22 (1.4-6.9); Basophil (Absolute #) 0 (0-0.4); Eosinophil % 0.2 % (0.00-5.0); Eosinophil (Absolute #) 0.01 (0-0.5); Hematocrit 38.6 % (35-47); Hemoglobin 12.9 gm/dl (12.0-16.0); Lymphocyte (Absolute #) 1.13 (1.0-4.6); Lymphocytes % 19.7 % (24.0-44.0); Mean Cell Volume 87.7 fl (78-100); Mean Corpuscular Hemoglobin 29.3 pg (26-32); Mean Corpuscular Hgb Concent. 33.4 g/dl (32-36); Monocyte (Absolute #) 0.37 (0.0-1.3); Monocytes % 6.5 % (0.0-12.0); Neutrophil % 73.6 % (36.0-66.0); Platelet Count 203 K/mm3 (150-450); Red Cell Distribution Width 13.6 % (11.5-14.0); White Blood Count 5.7 K/mm3 (4.0-10.5)
[2020-05-19] MEDS ORDERED: Decadron 4 MG INJ ONE (17:04)
[2020-05-19] MEDS ORDERED: Zofran 4 MG/2 ML VIAL ONE (17:04)
--- NOTE | 2020-05-19 17:04 | XRAY ---
Indication: Head injury following fall. Positive COVID 19. Multiple contiguous axial images obtained through the head without contrast. Comparison: October 31, 2016. Normal appearing brain parenchyma, ventricles, and bony calvarium. New right maxillary sinus moderate mucosal thickening with fluid leveling. Remaining paranasal sinuses and mastoid air cells are clear. Impression: New right maxillary sinus disease. Remaining CT head without contrast exam is normal.
[2020-05-19 17:11] LABS: ALBUMIN 3.9 g/dL (3.5-5.0); ALKALINE PHOSPHATASE 108 U/L (38-126); ANION GAP 10.2 MEQ/L (5-15); BLOOD UREA NITROGEN 9 mg/dL (7-17); CHLORIDE 102 mmol/L (98-107); Carbon Dioxide 28 mmol/L (22-30); EST GLOMERULAR FILTRATION RATE > 60.0 ML/MIN; Glucose 122 mg/dL (74-106); LDH-LACTATE DEHYDROGENASE 192 U/L (120-246); Potassium 3.5 mmol/L (3.5-5.1); SGOT/AST 27 U/L (14-36); SGPT/ALT 20 U/L (0-35); SODIUM 138 mmol/L (137-145); Total Protein 7.1 g/dL (6.3-8.2)
[2020-05-19 17:24] LABS: Appearance TURBID (CLEAR); Bacteria MODERATE /HPF (NEGATIVE); Bilirubin NEGATIVE (NEGATIVE); Blood SMALL Ery/ul (0-5); Glucose NEGATIVE (NEGATIVE); Ketones NEGATIVE (NEGATIVE); Leukocyte Esterase LARGE (NEGATIVE); Nitrite NEGATIVE (NEGATIVE); Protein,Urine Dip 30 (Negative); Specific Gravity 1.027 (1.005-1.025); Urobilinogen 2 mg/dL (0-1); WBC >100 /HPF (0-5)
[2020-05-19 17:25] LABS: Budding Yeast Few /HPF (NEGATIVE)
[2020-05-19] MEDS ORDERED: Levofloxacin 500 MG Tablet PO ONE (17:31)
[2020-05-19] MEDS ORDERED: ROCEPHIN 1 Gm-D5w 50 ml Bag** 1 G/50 ML IVPB IV STA (17:31)
[2020-05-19] MEDS ORDERED: Diflucan 100 MG PO ONE (17:33)
[2020-05-19] MEDS ORDERED: Sodium Chloride 0.9% 500 ML 500 ML IV ONE (17:35)
[2020-05-19] MEDS ORDERED: ROCEPHIN 1 Gm-D5w 50 ml Bag** 1 G/50 ML IVPB IV ONE (17:41)
[2020-05-19 17:42] LABS: Influenza A NEGATIVE (NEGATIVE); Influenza B NEGATIVE (NEGATIVE)
[2020-05-19] MEDS ORDERED: Levofloxacin 500 MG Tablet ONE (17:42)
[2020-05-19 19:40] VITALS: BP 129/70; PULSE 81; O2SAT 97
--- NOTE | 2020-05-20 08:50 | XRAY ---
Indication: Elevated d-dimer. Multiple contiguous axial images obtained through the chest using 80 cc Isovue 370 contrast and PE protocol. Comparison: March 12, 2020. There is satisfactory opacification of the pulmonary arteries to include the lobar and segmental branches. Again no pulmonary embolus. Heart is not enlarged. Aorta is normal in course and caliber. Stable subcarinal and left perihilar calcified nodes. No pathologic mediastinal/hilar lymphadenopathy. Stable small hiatal hernia. Lungs demonstrates worsening moderate bilateral dependent atelectasis with stable left lower lobe calcified granulomas. A few new subtle patchy groundglass airspace opacities bilaterally. No consolidation or effusion. Bony thorax intact again with degenerative changes throughout the spine. Limited upper abdomen again demonstrates hepatic/splenic calcified granulomas. 5 mm left renal calculus not previously imaged. Impression: 1. Continued negative pulmonary embolus. 2. New patchy bilateral groundglass airspace disease without consolidation/effusion. 3. Incidental small hiatal hernia, left renal micro-calculus, and old granulomatous disease.
== END 2020-05-19 19:30 | disposition home or self-care (01) ==
LOC: ED 15:28
DX: R50.9 Fever, unspecified (principal); N39.0 Urinary tract infection, site not specified; U07.1 COVID-19; R53.81 Other malaise; R55 Syncope and collapse; R21 Rash and other nonspecific skin eruption; Z79.899 Other long term (current) drug therapy; I10 Essential (primary) hypertension
CPT/HCPCS: 36000; 36415; 70450; 71045; 71260; 80053; 81001; 82728; 83605; 83615; 84484; 85025; 85379; 86308; 87040; 87086; 87502; 87651; 93005; 94760; 96374; 96375; 99285; J0696; J1100; J2405; A9270-GY

== ENCOUNTER 2021-03-16 17:33 | Emergency (ER) | payer OTHER ==
[2021-03-16] MEDS ORDERED: SUBLIMAZE 100 MCG/2 ML IV ONE (18:04)
[2021-03-16] MEDS ORDERED: Zofran 4 MG/2 ML VIAL IV ONE (18:04)
[2021-03-16] MEDS ORDERED: Sodium Chloride 0.9% 1000 ML 1,000 ML IV STA (18:04)
[2021-03-16] MEDS ORDERED: SUBLIMAZE 100 MCG/2 ML ONE (18:28)
[2021-03-16] MEDS ORDERED: Zofran 4 MG/2 ML VIAL ONE (18:28)
[2021-03-16] MEDS ORDERED: Sodium Chloride 0.9% 1000 ML 1,000 ML ONE (18:29)
--- NOTE | 2021-03-16 19:03 | ERPHSYRPT ---
- History of Present Illness Source: patient Exam Limitations: no limitations Patient Subjective Stated Complaint: SUNG x couple weeks Triage Nursing Assessment: pt to ED c/o SUNG x couple weeks. states she was exposed to COVID but has tested negative since exposure. also states she has been vaccinated and had COVID previously. also c/o nausea for same time frame as SUNG. rates 7/10 that radiates into both sides of her neck. Timing/Duration: week(s) (2) Quality: pressure, throbbing Head Pain Location: frontal Severity of Pain-Max: severe Severity of Pain-Current: severe Recent Head Trauma: no recent headache/trauma Associated Symptoms: facial pain, fever/chills Hx Tetanus, Diphtheria Vaccination/Date Given: Yes Hx Influenza Vaccination/Date Given: No Hx Pneumococcal Vaccination/Date Given: No Immunizations Up to Date: No <LORNA PUENTES - Last Filed: 03/16/21 19:04> <YANNI MALONE - Last Filed: 03/16/21 19:53> - History of Present Illness Time Seen by Provider: 03/16/21 17:55 Physician History: Patient is a 60-year-old white female who had Covid last fall subsequently received vaccination who presents with a complaint of headache for 2 weeks her ears feel full though she has facial pain she has been exposed to Covid again but was negative and a test on Sunday. She has had similar headaches in the past due to sinusitis. (LORNA PUENTES) Allergies/Adverse Reactions: hydrocodone bitartrate [From Vicodin] Adverse Reaction (Intermediate, Verified 03/16/21 17:40) MIGRAINE LIKE HEADACHES codeine Adverse Reaction (Verified 03/16/21 17:40) Home Medications: Omeprazole 20 MG [Prilosec 20 mg] 20 mg PO DAILY 12/07/11 [History] Loratadine 10 mg [Claritin 10 mg] 10 mg PO DAILY 02/27/14 [History] Losartan Potassium 50 mg [Cozaar 50 MG] 50 mg PO DAILY 10/31/16 [History] Paroxetine HCl 20 mg [Paxil 20 MG] 20 mg PO DAILY 02/19/18 [History] Travel Risk - International Travel Have you traveled outside of the country in past 3 weeks: No - Coronavirus Screening Are you exhibiting any of the following symptoms?: Yes Symptoms: Cough: New Onset, Headaches/Body Aches/Fatigue Close contact with a COVID-19 positive Pt in past 14-21 Days: Yes - Vaccine Status Have you recieved a Covid-19 vaccination: Yes Weed Cutter: Moderna - Vaccination Dates Date of 2cond Vaccination (if applicable): october <LORNA PUENTES - Last Filed: 03/16/21 19:04> - Review of Systems Constitutional: No Fever, No Chills Eyes: No Symptoms Ears, Nose, & Throat: No Symptoms, Hearing Changes, Nose Discharge Respiratory: No Cough, No Dyspnea Cardiac: No Chest Pain, No Edema, No Syncope Abdominal/Gastrointestinal: No Abdominal Pain, No Nausea, No Vomiting, No Diarrhea Genitourinary Symptoms: No Dysuria Musculoskeletal: No Back Pain, No Neck Pain Skin: No Rash Neurological: No Dizziness, No Focal Weakness, No Sensory Changes Psychological: No Symptoms Endocrine: No Symptoms All Other Systems: Reviewed and Negative <DELORISLORNA Last Filed: 03/16/21 19:04> - Past Medical History Pertinent Past Medical History: Yes Neurological History: No Pertinent History ENT History: No Pertinent History Cardiac History: Hypertension Respiratory History: No Pertinent History Endocrine Medical History: No Pertinent History Musculoskeletal History: Osteoarthritis GI Medical History: GERD History: No Pertinent History Psycho-Social History: Depression Female Reproductive Disorders: No Pertinent History Other Medical History: past scope on R knee for meniscus tears - Past Surgical History Past Surgical History: Yes Neuro Surgical History: No Pertinent History Cardiac: No Pertinent History Respiratory: No Pertinent History Gastrointestinal: Cholecystectomy Genitourinary: No Pertinent History Musculoskeletal: Orthopedic Surgery Female Surgical History: Section, Hysterectomy Other Surgical History: T&A, guillermo knee scopes - Social History Smoking Status: Never smoker Exposure to second hand smoke: Yes Drug Use: none Patient Lives Alone: No - Female History Hx Now: No <DELORISLORNA Last Filed: 03/16/21 19:04> - Physical Exam General Appearance: moderate distress Eye Exam: PERRL/EOMI Ears, Nose, Throat Exam: normal ENT inspection, moist mucous membranes Neck Exam: normal inspection, supple, full range of motion, No meningismus Respiratory Exam: normal breath sounds, lungs clear Cardiovascular Exam: regular rate/rhythm, normal heart sounds Gastrointestinal/Abdominal Exam: soft, No tenderness, No distention Back Exam: normal inspection, normal range of motion Mental Status Exam: alert, oriented x 3, cooperative sample mounter Exam: normal speech, PERRL, No facial droop Coordination/Gait Exam: normal cerebellar function Motor/Sensory Exam: no motor deficit, no sensory deficit Skin Exam: normal color, warm, dry, No rash SpO2: 92 <LORNA PUENTES - Last Filed: 03/16/21 19:04> - Nursing Vital Signs Nursing Vital Signs: Initial Vital Signs Temperature 97.5 F 03/16/21 17:40 Pulse Rate 63 03/16/21 17:40 Respiratory Rate 18 03/16/21 17:40 Blood Pressure 164/94 03/16/21 17:40 O2 Sat by Pulse Oximetry 97 03/16/21 17:40 Pain Scale Pain Intensity 5 - Course Nursing assessment & vital signs reviewed: Yes <LORNA PUENTES - Last Filed: 03/16/21 19:04> - Course Nursing assessment & vital signs reviewed: Yes - CT Exams Other CT Interpretation: Tele-radiologist Report (CT scan of sinuses reveals very minimal mucosal thickening floor right maxillary sinus. Minimal nasal septal deviation. Remaining CT sinus is normal) <YANNI MALONE - Last Filed: 03/16/21 19:53> Ordered Tests: Active Orders 24 hr Category Date Time Status SINUSES WITHOUT CONTRAST [CT] Stat Exams 03/16/21 18:04 Taken CBC W DIFF Stat Lab 03/16/21 18:30 Completed CMP Stat Lab 03/16/21 18:30 Completed Lactic Acid Urgent Lab 03/16/21 18:25 Completed Medication Summary Discontinued Medications Generic Name Dose Route Start Last Admin Trade Name Nalini PRN Reason Stop Dose Admin Fentanyl Citrate 75 mcg 03/16/21 18:04 03/16/21 18:32 Sublimaze 100 Mcg/2 Ml IV 03/16/21 18:05 75 mcg STAT ONE Administration Fentanyl Citrate Confirm 03/16/21 18:28 Sublimaze 100 Mcg/2 Ml Administered 03/16/21 18:29 Dose 100 mcg .ROUTE .STK-MED ONE Sodium Chloride 1,000 mls @ 999 mls/hr 03/16/21 18:04 03/16/21 19:40 Sodium Chloride 0.9% 1000 Ml IV 03/16/21 19:04 Infused .Q1H1M STA Infusion Sodium Chloride Confirm 03/16/21 18:29 Sodium Chloride 0.9% 1000 Ml Administered 03/16/21 18:30 Dose 1,000 mls @ ud .ROUTE .STK-[facility] ONE Ondansetron HCl 4 mg 03/16/21 18:04 03/16/21 18:32 Zofran 4 Mg/2 Ml Vial IV 03/16/21 18:05 4 mg STAT ONE Administration Ondansetron HCl Confirm 03/16/21 18:28 Zofran 4 Mg/2 Ml Vial Administered 03/16/21 18:29 Dose 4 mg .ROUTE .STK-[facility] ONE Lab/Rad Data: Laboratory Result Diagrams 03/16/21 18:30 03/16/21 18:30 Laboratory Results 03/16/21 03/16/21 03/16/21 Range/Units 18:30 18:30 18:25 WBC 6.8 (4.0-10.5) K/mm3 RBC 4.44 (4.1-5.4) M/mm3 Hgb 13.4 (12.0-16.0) gm/dl Hct 40.1 (35-47) % MCV 90.3 (78-100) fl MCH 30.2 (26-32) pg MCHC 33.4 (32-36) g/dl RDW 12.5 (11.5-14.0) % Plt Count 289 (150-450) K/mm3 MPV 10.3 (7.5-11.0) fl Gran % 57.0 (36.0-66.0) % Eos # (Auto) 0.16 (0-0.5) Absolute Lymphs (auto) 2.18 (1.0-4.6) Absolute Monos (auto) 0.54 (0.0-1.3) Lymphocytes % 32.3 (24.0-44.0) % Monocytes % 8.0 (0.0-12.0) % Eosinophils % 2.4 (0.00-5.0) % Basophils % 0.3 (0.0-0.4) % Absolute Granulocytes 3.85 (1.4-6.9) Basophils # 0.02 (0-0.4) Sodium 138 (137-145) mmol/L Potassium 3.7 (3.5-5.1) mmol/L Chloride 105 (98-107) mmol/L Carbon Dioxide 24 (22-30) mmol/L Anion Gap 12.5 (5-15) MEQ/L BUN 14 (7-17) mg/dL Creatinine 0.77 (0.52-1.04) mg/dL Estimated GFR > 60.0 ML/MIN Glucose 91 (74-106) mg/dL Lactic Acid 1.4 (0.4-2.0) Calcium 8.7 (8.4-10.2) mg/dL Total Bilirubin 0.70 (0.2-1.3) mg/dL AST 20 (14-36) U/L ALT 17 (0-35) U/L Alkaline Phosphatase 91 (38-126) U/L Serum Total Protein 6.7 (6.3-8.2) g/dL Albumin 4.0 (3.5-5.0) g/dL - Progress Progress: improved, unchanged Air Movement: good Blood Culture(s) Obtained: No Antibiotics given: No <LORNA PUENTES - Last Filed: 03/16/21 19:04> - Progress Counseled pt/family regarding: lab results, diagnosis, need for follow-up, rad results <YANNI MALONE - Last Filed: 03/16/21 19:53> - Progress Progress Note: Patient endorsed Dr. Malone at approximately [address] Malone advised to follow-up on CT sinuses. Dr. Malone advised to discharge patient as long as his sinuses are normal and patient feels better. Sinuses show no concerning pathology. Patient states her headache is significantly better and is requesting discharge. CBC and chemistry are within normal limits. Will discharge home. Patient agrees to follow-up with a primary care doctor within 48 hours. Portions of this note were created with voice recognition technology. There may be grammatical, spelling, punctuation or sound alike errors 03/16/21 19:41 (YANNI MALONE) - Departure Departure Disposition: Home Critical Care Time: No <LORNA PUENTES - Last Filed: 03/16/21 19:04> <YANNI MALONE - Last Filed: 03/16/21 19:53> - Departure Clinical Impression: Sinusitis, Headache Condition: Stable Referrals: KERRY GARZA MD [Primary Care Provider] - Instructions: Headache, Adult (DC) Additional Instructions: Discharge/Care Plan TEE-AGUSTO SOUZA was seen on 03/16/21 in the Emergency Room. The patient was counseled regarding Diagnosis,Lab results, Imaging studies, need for follow up and when to return to the Emergency Room. Prescriptions given: Discharge Note I have spoken with the patient and/or caregivers. I have explained the patient's condition, diagnosis and treatment plan based on the information available to me at this time. I have answered the patient's and/or caregiver's questions and addressed any concerns. The patient and/or caregivers have as good understanding of the patient's diagnosis, condition and treatment plan as can be expected at this point. The vital signs have been stable. The patient's condition is stable and appropriate for discharge from the emergency department. The patient will pursue further outpatient evaluation with the primary care physician or other designated or consulting physician as outlined in the discharge instructions. The patient and/or caregivers are agreeable to this plan of care and follow-up instructions have been explained in detail. The patient and/or caregivers have received these instruction. The patient/and or caregivers are aware that any significant change in condition or worsening of symptoms should prompt an immediate return to this or the closest emergency department or call 911.
[2021-03-16 19:33] VITALS: PULSE 63
[2021-03-16 19:38] LABS: Absolute Neutrophil Ct (ANC) 3.85 (1.4-6.9); BASOPHIL % 0.3 % (0.0-0.4); Basophil (Absolute #) 0.02 (0-0.4); Eosinophil % 2.4 % (0.00-5.0); Eosinophil (Absolute #) 0.16 (0-0.5); Hematocrit 40.1 % (35-47); Hemoglobin 13.4 gm/dl (12.0-16.0); Lymphocyte (Absolute #) 2.18 (1.0-4.6); Lymphocytes % 32.3 % (24.0-44.0); Mean Cell Volume 90.3 fl (78-100); Mean Corpuscular Hemoglobin 30.2 pg (26-32); Mean Corpuscular Hgb Concent. 33.4 g/dl (32-36); Mean Platelet Volume 10.3 fl (7.5-11.0); Monocyte (Absolute #) 0.54 (0.0-1.3); Platelet Count 289 K/mm3 (150-450); Red Blood Count 4.44 M/mm3 (4.1-5.4); Red Cell Distribution Width 12.5 % (11.5-14.0); White Blood Count 6.8 K/mm3 (4.0-10.5)
[2021-03-16 19:49] LABS: ALKALINE PHOSPHATASE 91 U/L (38-126); ANION GAP 12.5 MEQ/L (5-15); BLOOD UREA NITROGEN 14 mg/dL (7-17); CHLORIDE 105 mmol/L (98-107); Calcium 8.7 mg/dL (8.4-10.2); Carbon Dioxide 24 mmol/L (22-30); Creatinine 1 0.77 mg/dL (0.52-1.04); EST GLOMERULAR FILTRATION RATE > 60.0 ML/MIN; Glucose 91 mg/dL (74-106); Potassium 3.7 mmol/L (3.5-5.1); SGOT/AST 20 U/L (14-36); SGPT/ALT 17 U/L (0-35); SODIUM 138 mmol/L (137-145); Total Protein 6.7 g/dL (6.3-8.2)
[2021-03-16 20:06] VITALS: BP 146/76; O2SAT 95
--- NOTE | 2021-03-17 08:43 | XRAY ---
Indication: Facial pain and congestion 2 weeks. Multiple contiguous axial images obtained through the sinuses. Sagittal and coronal reformatted images obtained. Comparison: None Fluoroscopy of the right maxilla sinus demonstrates very minimal mucosal thickening. Remaining paranasal sinuses, ostiomeatal units, and nasal passages are clear. Mild nasal septal deviation to the left. Moderate atlantoaxial degenerative arthropathy. No acute fracture, suspicious bony lesions, or osseous destructive process. Visualized noncontrasted soft tissues including orbits and base of the brain are unremarkable. Mastoid air cells are pneumatized and clear. Impression: 1. Very minimal right maxillary sinus disease and nasal septal deviation. 2. Incidental atlantoaxial degenerative arthropathy.
== END 2021-03-16 20:06 | disposition home or self-care (01) ==
LOC: ED 17:33
DX: R51.9 Headache, unspecified (principal); J32.9 Chronic sinusitis, unspecified; R11.0 Nausea; Z20.822 Contact with and (suspected) exposure to COVID-19; Z79.899 Other long term (current) drug therapy
CPT/HCPCS: 36000; 36415; 70486; 80053; 83605; 85025; 96360; 96374; 96375; 99284; J2405; J3010